=== PATIENT | male | born 1965 | race Caucasian/White ===

== ENCOUNTER 2017-05-10 12:34 | Emergency (ER) | payer SELFPAY ==
[~2017-05-10] VITALS: Ht 170.2 cm; Wt 72.6 kg
[2017-05-10 13:25] VITALS: BP 206/117
--- NOTE | 2017-05-10 18:55 | NUR ---
PATIENT AMBULATED TO BED 6 AT THIS TIME.
--- NOTE | 2017-05-10 19:03 | NUR ---
51 Y/O M W/C/O "NOT FEELING WELL" AFTER DRINKING LAST NIGHT, PT TOOK OLMESARTAN, HIDROCLOROTIAZIDA 20MG, 12.5" FOR HTN AND THEN FELT DIZZY NOTABLE GENERALIZED TREMORS--ADMITS TO DAILY DRINKING FOR YEARS BUT DENIES HAVING ANY ALCOHOL TODAY. PT STATES WAS RECENTLY DIAGNOSED WITH HTN, BUT HAS START ANY TX PRESCRIBED FOR IT. ER MD NOTIFIED, OF INCREASED BP. 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
--- NOTE | 2017-05-10 19:36 | NUR ---
Dr. Weathers evaluating patient at bedside.
[2017-05-10 20:33] LABS: BASOPHILS # (AUTO) 0.1 K/uL (0.00-0.22); BASOPHILS % (AUTO) 1.3 % (0.0-2.0); EOSINOPHILS # (AUTO) 0.1 K/uL (0-0.4); EOSINOPHILS % (AUTO) 1.3 % (0.0-4.0); HEMATOCRIT 46.1 % (36-52); HEMOGLOBIN 15.6 g/dL (12.0-18.0); LYMPHOCYTES # (AUTO) 0.4 K/uL (2.0-11.5); LYMPHOCYTES % (AUTO) 5.4 % (20.5-51.1); MEAN CORPUSCULAR HEMOGLOBIN 33 pg (27-31); MEAN CORPUSCULAR HGB CONC 34 g/dL (33-37); MEAN CORPUSCULAR VOLUME 97 fL (80-94); MONOCYTES # (AUTO) 0.8 K/uL (0.8-1.0); MONOCYTES % (AUTO) 10.6 % (1.7-9.3); NEUTROPHILS % (AUTO) 81.4 % (42.2-75.2); PLATELET COUNT (AUTO) 117 K/uL (140-450); RED BLOOD CELL COUNT(AUTO) 4.76 MIL/uL (4.20-6.10); RED CELL DISTRIBUTION WIDTH 11.8 % (11.6-13.7); WHITE BLOOD COUNT (AUTO) 7.4 K/uL (4.8-10.8)
[2017-05-10 20:46] LABS: ANION GAP 15.2 (8-16); CALCIUM 10.5 mg/dL (8.5-10.1); CARBON DIOXIDE 29.2 mmol/L (21-32); CREATININE 0.7 mg/dL (0.6-1.3); POTASSIUM 3.4 mmol/L (3.5-5.1)
[2017-05-10 20:51] LABS: PROTHROMBIN TIME 10.2 secs (10.8-13.4)
[2017-05-10 20:59] LABS: ALBUMIN 4.3 g/dL (3.4-5.0); TOTAL BILIRUBIN 2.3 mg/dL (0.0-1.0)
[2017-05-10 21:49] VITALS: BP 172/99
--- NOTE | 2017-05-10 21:52 | NUR ---
REFERRALS ALCH[employer]I/SUBSTANCE ABUSE FORMS 02/2013 GIVEN TO PT.
== END 2017-05-10 21:53 | disposition home or self-care (01) ==
LOC: MED 12:34
DX: F10.20 Alcohol dependence, uncomplicated (principal); I10 Essential (primary) hypertension; F15.10 Other stimulant abuse, uncomplicated
CPT/HCPCS: 29505; 36415; 71010; 80053; 82140; 83690; 83880; 84484; 85025; 85610; 85730; 93005; 96372; 99284; 99285